=== PATIENT | female | born 1985 | race Caucasian/White ===

== ENCOUNTER 2016-05-16 20:01 | Emergency (ER) | payer BC ==
[2016-05-16] MEDS ORDERED: SODIUM CHLORIDE 0.9% 1,000 ML ONE (21:55)
[2016-05-16] MEDS ORDERED: ONDANSETRON 4 MG VIAL ONE (21:55)
== END 2016-05-16 22:59 | disposition home or self-care (01) ==
LOC: ER 20:01
DX: J11.2 Influenza due to unidentified influenza virus with gastrointestinal manifestations (principal); J06.9 Acute upper respiratory infection, unspecified; J45.909 Unspecified asthma, uncomplicated; Z79.899 Other long term (current) drug therapy
CPT/HCPCS: 81001; 87088; 96361; 96374